=== PATIENT | female | born 1955 | race Caucasian/White ===

== ENCOUNTER 2024-02-10 09:08 | Emergency (ER) | payer OTHER ==
[2024-02-10] MEDS ORDERED: ALBUTEROL SO4 2.5/IPRATROPIUM 0.5 INH SOL 3 ML VIAL.NEB. NEB ONE (09:22)
[2024-02-10] MEDS ORDERED: predniSONE 20 MG TABLET (UD) ONE (09:22)
[2024-02-10] MEDS: predniSONE 20 MG TABLET (UD) PO ONE (09:28)
[2024-02-10] MEDS: ALBUTEROL SO4 2.5/IPRATROPIUM 0.5 INH SOL 3 ML VIAL.NEB. NEB SCH (09:29)
[2024-02-10 09:52] VITALS: BP 136/83; PULSE 98; RESP 20; TEMP 99.3; BMI 36.6
[2024-02-10] MEDS ORDERED: ACETAMINOPHEN INJECTION 100 ML IVPB ONE (10:39)
[2024-02-10] MEDS ORDERED: AZITHROMYCIN 500 MG VIAL IVPB ONE (10:39)
[2024-02-10] MEDS ORDERED: MAGNESIUM SULFATE IN WATER 2 GM/50 ML IVPB IVPB ONE (10:40)
[2024-02-10] MEDS: CEFTRIAXONE 1 GM in DEXTROSE 5%-WATER - 100 ML IVPB ONE (11:05)
[2024-02-10] MEDS: SODIUM CHLORIDE 1,000 ML IV STA (11:05)
[2024-02-10] MEDS: ACETAMINOPHEN 1000 MG/100 ML BAG IVPB ONE (11:05)
[2024-02-10] MEDS: AZITHROMYCIN IVPB 500 MG in DEXTROSE 5%-WATER - 250 ML IVPB ONE (11:05)
[2024-02-10 11:35] LABS: HEMOGLOBIN 15.9 G/dL (10.7-15.3); MCH 30.8 pg (25.7-33.7); MCHC 33.9 g/dl (32.0-36.0); MEAN PLT VOLUME 9.2 fl (7.5-11.1); RBC 5.17 10^6/uL (3.60-5.2)
[2024-02-10 11:45] LABS: ALBUMIN 4.4 g/dl (3.4-5.0); BILIRUBIN,TOTAL 0.7 mg/dl (0.2-1); CALCIUM 9.4 mg/dl (8.5-10.1); CREATININE 0.8 mg/dl (0.6-1.3); POTASSIUM 3.4 mmol/L (3.5-5.1); TOT PROT 7.3 g/dl (6.4-8.2)
[2024-02-10 11:49] LABS: PLATELET ESTIMATE ADEQUATE
[2024-02-10] MEDS ORDERED: guaiFENesin/CODEINE 10 ML UNIT-DOSE CUPS ONE (12:43)
[2024-02-10] MEDS: guaiFENesin/CODEINE 10 ML UNIT-DOSE CUPS PO ONE (12:49)
[2024-02-10] MEDS: MAGNESIUM SULFATE IN WATER 2 GM/50 ML IVPB IVPB ONE (13:20)
[2024-02-10 14:08] LABS: EPITHELIAL CELLS 0-5 /hpf
== END 2024-02-10 14:08 | disposition home or self-care (01) ==
LOC: FER 09:08
PROC: 3E03329 Introduction of Other Anti-infective into Peripheral Vein, Percutaneous Approach (ICD-10-PCS; principal; 2024-02-10)
PROC: 3E03329 Introduction of Other Anti-infective into Peripheral Vein, Percutaneous Approach (ICD-10-PCS; 2024-02-10)
PROC: 3E033GC Introduction of Other Therapeutic Substance into Peripheral Vein, Percutaneous Approach (ICD-10-PCS; 2024-02-10)
DX: R06.02 Shortness of breath (principal); R05.9 Cough, unspecified; R09.81 Nasal congestion; J45.901 Unspecified asthma with (acute) exacerbation; J18.9 Pneumonia, unspecified organism; B97.4 Respiratory syncytial virus as the cause of diseases classified elsewhere; Z20.822 Contact with and (suspected) exposure to COVID-19
CPT/HCPCS: 0241U-QW; 36415; 71045-TC-FY; 80053; 81003; 81015; 85027; 87040; 87086; 96365; 96368; 96375; 99284-25; J0131